=== PATIENT | male | born 1945 | race Caucasian/White ===

== ENCOUNTER 2023-02-28 00:11 | Inpatient (IN) ==
[2023-02-28 01:07] LABS: Albumin Globulin Ratio 1.6 (0.9-2); Albumin Level 4.2 gm/dl (3.4-5.0); BUN Creatinine Ratio 20.3 (10-20); Basophils # (auto) 0.03 K/uL (0-0.2); Basophils % (auto) 0.4 %; Bilirubin,Total 0.5 mg/dl (0.2-1.0); Calcium 9.3 mg/dl (8.6-10.3); Creatinine Clr Calc Pharmacy 54.3 ml/min; Est GFR (African American) 64.3 ml/min; Est GFR (Non-African American) 55.5 ml/min; Globulin 2.7 gm/dl (2.5-4.0); Hematocrit (blood only) 37.1 % (42.0-52.0); Hemoglobin 13.4 g/dl (14.0-18.0); Immature Granulocytes # (auto) 0.03 K/uL (0.01-0.20); Immature Granulocytes % (auto) 0.4 %; Lymphocytes % (auto) 27.1 %; Magnesium 2.1 mg/dl (1.7-2.4); Mean Corpuscular Hemoglobin 32.3 pg (25.0-34.0); Mean Corpuscular Hgb Conc 36.1 g/dL (32.0-36.0); Mean Corpuscular Volume 89.4 fL (80.0-100.0); Mean Platelet Volume 9.2 fL (9.4-12.4); Monocytes % (auto) 8.1 %; Neutrophils # (auto) 4.73 K/uL (1.40-6.50); Platelet Count 201 K/uL (130-400); Potassium 3.3 mmol/L (3.5-5.1); RDW Standard Deviation 42.3 fL (36.4-46.3); Red Blood Count 4.15 M/uL (4.70-6.10); Total Protein 6.9 gm/dl (6.0-8.3); White Blood Count 7.39 K/ul (4.8-10.8)
[2023-02-28] MEDS ORDERED: OPTIRAY 320 500ml IV ONE (01:33)
[2023-02-28 01:48] LABS: Partial Thromboplastin Ratio 1.1; Partial Thromboplastin Time 30.8 Seconds (21.0-31.0); Prothrombin Time 10.9 Seconds (9.0-12.0)
--- NOTE | 2023-02-28 02:02 | CT Scan Report ---
Exam(s): CT HEAD Without Contrast EXAM: CT Head Without Intravenous Contrast CLINICAL HISTORY: Reason for exam: neuro deficit, acute stroke suspected. TECHNIQUE: Axial computed tomography images of the head/brain without intravenous contrast. CTDI is 37.22 mGy and DLP is 624.41 mGy-cm. Automated exposure control was utilized for the study. A dose lowering technique was utilized adhering to the principles of ALARA. COMPARISON: None. FINDINGS: Brain: Mild generalized brain atrophy. Decreased attenuation within the deep periventricular white matter consistent with mild microangiopathic white matter disease. No hemorrhage. Ventricles: Unremarkable. No ventriculomegaly. Bones/joints: Unremarkable. No acute fracture. Soft tissues: Unremarkable. Sinuses: Unremarkable as visualized. No acute sinusitis. Mastoid air cells: Unremarkable as visualized. No mastoid effusion. IMPRESSION: Chronic changes as described. No acute intracranial hemorrhage or space-occupying lesion. Electronically signed by: Nahomi Esparza MD 02/28/23 02:01 AM
--- NOTE | 2023-02-28 02:04 | CT Scan Report ---
Exam(s): CTA NECK With Contrast IV Amt: 110 ml EXAM: CT Angiography Neck With Intravenous Contrast CLINICAL HISTORY: Reason for exam: neuro deficit, acute stroke suspected. TECHNIQUE: Routine carotid CT angiography protocol was performed with intravenous contrast. NASCET criteria using the distal ICAs for comparison were used for evaluation of stenoses. CTDI is 7.52 mGy and DLP is 281.18 mGy-cm. Automated exposure control was utilized for the study. A dose lowering technique was utilized adhering to the principles of ALARA. MIP reconstructed images were created and reviewed. CONTRAST: Patient received 110 ml of IV contrast COMPARISON: None. FINDINGS: VASCULATURE: Right common carotid artery: Unremarkable. No occlusion or significant stenosis. No dissection. Right internal carotid artery: Unremarkable. Extracranial segment is patent with no occlusion or significant stenosis. No dissection. Right external carotid artery: Unremarkable. No occlusion. Right vertebral artery: Unremarkable. No occlusion or significant stenosis. No dissection. Left common carotid artery: Unremarkable. No occlusion or significant stenosis. No dissection. Left internal carotid artery: Unremarkable. Extracranial segment is patent with no occlusion or significant stenosis. No dissection. Left external carotid artery: Unremarkable. No occlusion. Left vertebral artery: Dominant left-sided vertebral artery otherwise normal bilateral vertebral arteries. No occlusion or significant stenosis. No dissection. Aorta: Minimal atherosclerotic disease throughout the great vessels otherwise normal aortic arch with no signs of aneurysm or dissection. NECK: Bones/joints: Unremarkable. Soft tissues: Unremarkable. Lung apices: Clear. CAROTID STENOSIS REFERENCE USING NASCET CRITERIA: % ICA stenosis = (1 - narrowest ICA diameter/diameter of distal cervical ICA) x 100. Mild - <50% stenosis. Moderate - 50-69% stenosis. Severe - 70-94% stenosis. Near occlusion - 95-99% stenosis. Occluded - 100% stenosis. IMPRESSION: Negative CT angiogram of the neck with no evidence of stenosis, occlusion or dissection seen. Electronically signed by: Nahomi Esparza MD 02/28/23 02:03 AM
--- NOTE | 2023-02-28 02:06 | CT Scan Report ---
Exam(s): CTA HEAD With Contrast IV Amt: 110 ml EXAM: CT Angiography Head With Intravenous Contrast CLINICAL HISTORY: Reason for exam: neuro deficit, acute stroke suspected. TECHNIQUE: Axial computed tomographic angiography images of the head with intravenous contrast. CTDI is 29.89 mGy and DLP is 14.95 mGy-cm. Automated exposure control was utilized for the study. A dose lowering technique was utilized adhering to the principles of ALARA. MIP reconstructed images were created and reviewed. CONTRAST: Patient received 110 ml of IV contrast COMPARISON: None. FINDINGS: Right internal carotid artery: Mild calcified atherosclerotic plaque through the cavernous portion of the right internal carotid artery with no stenosis. No aneurysm. Right anterior cerebral artery: Unremarkable. No occlusion or significant stenosis. No aneurysm. Right middle cerebral artery: Unremarkable. No occlusion or significant stenosis. No aneurysm. Right posterior cerebral artery: Unremarkable. No occlusion or significant stenosis. No aneurysm. Right vertebral artery: Unremarkable as visualized. Left internal carotid artery: No acute findings. Intracranial segment is patent with no significant stenosis. No aneurysm. Left anterior cerebral artery: Unremarkable. No occlusion or significant stenosis. No aneurysm. Left middle cerebral artery: Unremarkable. No occlusion or significant stenosis. No aneurysm. Left posterior cerebral artery: Unremarkable. No occlusion or significant stenosis. No aneurysm. Left vertebral artery: Unremarkable as visualized. Basilar artery: Unremarkable. No occlusion or significant stenosis. No aneurysm. IMPRESSION: Negative CT angiogram of the brain with no focal stenosis, occlusion or aneurysm involving the [place] of [place]. Electronically signed by: Nahomi Esparza MD 02/28/23 02:05 AM
[2023-02-28] MEDS ORDERED: SODIUM CHLORIDE 0.9% 1000ML 1,000 ML IV SCH (02:30)
[2023-02-28] MEDS: ASPIRIN CHEW 324 MG PO STA ×2 (02:37→02:39)
--- NOTE | 2023-02-28 02:42 | Emergency Department Note ---
Impression & Plan Stroke-like symptoms, Hypertension, Elevated troponin ED Provider Note INFORMANT: Patient ED PROVIDER(S): Chandra Stallings MD CHIEF COMPLAINT: Hypertension and strokelike symptoms PLAN: Disposition: Admitted Condition: Good Outpatient prescription management: none Referral: None MEDICAL DECISION MAKING: Patient presented because of hypertension strokelike symptoms. His initial blood pressure was elevated significantly but improved from that at home. He underwent a work-up. His ECG did show a bradycardia with lateral T wave inversion. Patient had an unremarkable chest x-ray. CT and CT angiography of the head and neck revealed no acute stroke or dissection. He had an unremarkable CBC and chemistry panel. His troponin was minimally elevated. Aspirin was ordered but then patient's noted she gave him 1 prior to arrival. The patient was given saline hydration. Further management will be necessary in the hospital. Patient and were in agreement and pleased with the treatment. Consultation was placed with Dr. Kuldip Murray, [facility] hospitalist service. Patient was evaluated in the ER and admitted for further management. Patient symptoms started last week. He is not a thrombolytic candidate. Stroke alert not initiated. 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 Triage Nursing notes reviewed and agree them. Vital Signs: reviewed and remarkable for hypertension Prior /Outside records reviewed: none Differential diagnosis: CVA, TIA, hypertensive emergency, infection, dehydration, metabolic abnormality, hypo/hyperglycemia, electrolyte disturbance, anemia, hypoxia, cardiac sources, intracerebral event, toxicologic, neurologic, as well as other pathologies. Diagnostics, as interpreted by me: ECG: Twelve-lead ECG reveals a sinus bradycardia with particularly blocked 56 bpm. There is a lateral T wave inversion present. No ST elevation. Cardiac Monitoring: Cardiac monitoring ordered by me: The patient was placed on continuous cardiac monitoring and observed. It revealed a sinus bradycardic rhythm at 54 bpm. No dysrhythmia. Medical decision rules: none Imaging studies: Chest x-ray. Findings: A chest x-ray was performed and revealed no pneumothorax, effusion, infiltrate, pulmonary edema, free air under the diaphragm, or wide mediastinum. Impression: No acute disease. CT and CT angiography of the head and neck is negative for acute stroke or vessel pathology. I refer you to the EMR for further details. HPI: The patient is a 77year old male who presents to the Emergency Room with complaints of hypertension and strokelike symptoms. This started last week and is persisting. Patient notes he is having occasional difficulty getting words out. He notes that he has had problems with balance and that his left leg feels weak. His blood pressure very high at home At 216/90. The patient also notes the following associated symptoms, feeling foggy in the head. The patient has taken a full dose of aspirin prior to coming in relieving factors. Current pain is rated as 0/10. Pt denies LOC, headache, fevers, chills, diaphoresis, visual changes, neck pain, chest pain, breathing difficulties, nausea, vomiting, abdominal pain, back pain, urinary symptoms, numbness, lymphadenopathy, rash, or other complaints. PAST MEDICAL HISTORY: See Below, stroke PAST SURGICAL HISTORY: See Below, SOCIAL HISTORY: See Below, HOME MEDICATIONS: See Below ALLERGIES: See Below VITALS: See Below PHYSICAL EXAMINATION: GENERAL: Awake, alert, well-appearing, in no distress HENT: Normocephalic, atraumatic. Oropharynx unremarkable. EYES: Normal conjunctiva. Sclera non-icteric. PERRLA. EOMI. NECK: Inspection normal. Non-tender. Supple. No nuchal rigidity. FROM. No masses. RESPIRATORY: Clear to auscultation. No wheezes. No rales. Normal respiratory e ffort. CARDIAC: Normal rate. Normal rhythm. No murmurs. No rubs. Extremities warm and well perfused. Pulses equal. No JVD. GI: Soft, non-distended. No tenderness to palpation. No rebound or guarding. No masses. RECTAL: Deferred. MUSCULOSKELETAL: Atraumatic. Chest examination reveals no tenderness. The back is symmetrical on inspection without obvious abnormality. There is no CVA tenderness to palpation. No joint edema. LOWER EXTREMITIES: Calves are equal size bilaterally and non-tender. No edema. No discoloration. NEURO: Normal sensorium. Mild left leg weakness noted. Normal rapid alter nating movements. Normal [id number]. No other sensory or motor deficits noted. Cranial nerves II through XII intact. Speech normal. SKIN: No rash or jaundice noted. Past Med/Surg History Social History Smoking Status: Never smoker Preferred Language: Latvian Feels Safe at Home: Yes Allergies Allergies Allergy/AdvReac Type Severity Reaction Status Date / Time No Known Allergies Allergy Verified 02/28/23 01:10 Home Meds Home Medications Medication Instructions Recorded Confirmed clotrimazole-betamethasone 1 1 applic topical DAILY PRN Skin 02/28/23 02/28/23 %-0.05 % topical cream Irritation donepezil 5 mg tablet 5 mg PO QPM 02/28/23 02/28/23 tamsulosin 0.4 mg capsule (Flomax) 0.4 mg PO HS 02/28/23 02/28/23 venlafaxine 75 mg capsule,extended 75 mg PO DAILY 02/28/23 02/28/23 release 24 hr Results & Data (ED) Vital Signs Vital Signs - 24 hr 02/28/23 00:13 02/28/23 01:46 02/28/23 02:00 Temperature 36.6 C Temperature Source Temporal Artery Scan Pulse Rate 60 58 L Pulse Rate [Apical] 60 Respiratory Rate 16 18 Respiratory Effort / Characteristics Non-Labored Spontaneous Respiratory Depth Normal Respiratory Pattern Regular Blood Pressure 206/88 H Blood Pressure [Right Arm] 177/86 H Blood Pressure Mean 127 Blood Pressure Mean [Right Arm] 116 Pulse Oximetry 97 96 Oxygen Delivery Method Room Air Room Air Sepsis Recent Fever Within 48 Hours No Sepsis New/Unexplained Change in Mental Status N/A Sepsis Action Taken by Nursing No Action Required 02/28/23 02:28 Temperature Temperature Source Pulse Rate Pulse Rate [Apical] 54 L Respiratory Rate 18 Respiratory Effort / Characteristics Respiratory Depth Respiratory Pattern Blood Pressure Blood Pressure [Right Arm] 173/78 H Blood Pressure Mean Blood Pressure Mean [Right Arm] 109 Pulse Oximetry 94 Oxygen Delivery Method Room Air Sepsis Recent Fever Within 48 Hours Sepsis New/Unexplained Change in Mental Status Sepsis Action Taken by Nursing Laboratory Data 02/28/23 00:27 02/28/23 00:27 Lab Results 02/28/23 02/28/23 02/28/23 Range/Units 00:27 00:27 00:27 WBC 7.39 (4.8-10.8) K/ul RBC 4.15 L (4.70-6.10) M/uL Hgb 13.4 L (14.0-18.0) g/dl Hct 37.1 L (42.0-52.0) % MCV 89.4 (80.0-100.0) fL MCH 32.3 (25.0-34.0) pg MCHC 36.1 H (32.0-36.0) g/dL RDW Std Deviation 42.3 (36.4-46.3) fL RDW Coeff of Aster 13.0 (11.5-14.5) % Plt Count 201 (130-400) K/uL MPV 9.2 L (9.4-12.4) fL Immature Gran % (Auto) 0.4 % Neut % (Auto) 64.0 % Lymph % (Auto) 27.1 % [place] % (Auto) 8.1 % Eos % (Auto) 0.0 % Baso % (Auto) 0.4 % Neut # (Auto) 4.73 (1.40-6.50) K/uL Lymph # (Auto) 2.00 (1.2-3.4) K/uL [place] # (Auto) 0.60 H (0.11-0.59) K/uL Eos # (Auto) 0.00 (0-0.50) K/uL Baso # (Auto) 0.03 (0-0.2) K/uL Immature Gran # (Auto) 0.03 (0.01-0.20) K/uL PT 10.9 (9.0-12.0) Seconds INR 1.0 (0.9-1.1) APTT 30.8 (21.0-31.0) Seconds PTT Ratio 1.1 Sodium 138 (136-145) mmol/L Potassium 3.3 L (3.5-5.1) mmol/L Chloride 104 (98-107) mmol/L Carbon Dioxide 28 (21-32) mmol/L Anion Gap 6 (3-11) BUN 25 H (6-23) mg/dl Creatinine 1.23 (0.6-1.4) mg/dl Est Cr Clr Drug Dosing 54.3 ml/min Est GFR ( Amer) 64.3 ml/min Est GFR (Non-Af Amer) 55.5 ml/min BUN/Creatinine Ratio 20.3 H (10-20) Glucose 162 H (70-99(Fasting)) mg/dl Calcium 9.3 (8.6-10.3) mg/dl Magnesium 2.1 (1.7-2.4) mg/dl Total Bilirubin 0.5 (0.2-1.0) mg/dl AST 20 (13-39) U/L ALT 16 (7-52) U/L Alkaline Phosphatase 64 (34-104) U/L Troponin I High Sens 33.0 H (0-20) pg/ml Total Protein 6.9 (6.0-8.3) gm/dl Albumin 4.2 (3.4-5.0) gm/dl Globulin 2.7 (2.5-4.0) gm/dl Albumin/Globulin Ratio 1.6 (0.9-2) Urine Color Urine Appearance (Clear) Urine pH (4.5-7.5) Ur Specific D Lo (1.000-1.030) Urine Protein (Negative) Urine Glucose (UA) (Negative) Urine Ketones (Negative) Urine Blood (Negative) Urine Nitrite (Negative) Urine Bilirubin (Negative) Urine Urobilinogen (Negative) Ur Leukocyte Esterase (Negative) Lyme Disease IgG Ab (Negative) Lyme Disease IgM Ab (Negative) SARS-CoV-2, RNA, NAAT (NEGATIVE) 02/28/23 02/28/23 02/28/23 Range/Units 00:27 01:45 02:25 WBC (4.8-10.8) K/ul RBC (4.70-6.10) M/uL Hgb (14.0-18.0) g/dl Hct (42.0-52.0) % MCV (80.0-100.0) fL MCH (25.0-34.0) pg MCHC (32.0-36.0) g/dL RDW Std Deviation (36.4-46.3) fL RDW Coeff of Aster (11.5-14.5) % Plt Count (130-400) K/uL MPV (9.4-12.4) fL Immature Gran % (Auto) % Neut % (Auto) % Lymph % (Auto) % [place] % (Auto) % Eos % (Auto) % Baso % (Auto) % Neut # (Auto) (1.40-6.50) K/uL Lymph # (Auto) (1.2-3.4) K/uL [place] # (Auto) (0.11-0.59) K/uL Eos # (Auto) (0-0.50) K/uL Baso # (Auto) (0-0.2) K/uL Immature Gran # (Auto) (0.01-0.20) K/uL PT (9.0-12.0) Seconds INR (0.9-1.1) APTT (21.0-31.0) Seconds PTT Ratio Sodium (136-145) mmol/L Potassium (3.5-5.1) mmol/L Chloride (98-107) mmol/L Carbon Dioxide (21-32) mmol/L Anion Gap (3-11) BUN (6-23) mg/dl Creatinine (0.6-1.4) mg/dl Est Cr Clr Drug Dosing ml/min Est GFR ( Amer) ml/min Est GFR (Non-Af Amer) ml/min BUN/Creatinine Ratio (10-20) Glucose (70-99(Fasting)) mg/dl Calcium (8.6-10.3) mg/dl Magnesium (1.7-2.4) mg/dl Total Bilirubin (0.2-1.0) mg/dl AST (13-39) U/L ALT (7-52) U/L Alkaline Phosphatase (34-104) U/L Troponin I High Sens (0-20) pg/ml Total Protein (6.0-8.3) gm/dl Albumin (3.4-5.0) gm/dl Globulin (2.5-4.0) gm/dl Albumin/Globulin Ratio (0.9-2) Urine Color Yellow Urine Appearance Clear (Clear) Urine pH 6.5 (4.5-7.5) Ur Specific D Lo 1.040 H (1.000-1.030) Urine Protein Negative (Negative) Urine Glucose (UA) Negative (Negative) Urine Ketones Negative (Negative) Urine Blood Negative (Negative) Urine Nitrite Negative (Negative) Urine Bilirubin Negative (Negative) Urine Urobilinogen Negative (Negative) Ur Leukocyte Esterase Negative (Negative) Lyme Disease IgG Ab Negative (Negative) Lyme Disease IgM Ab Negative (Negative) SARS-CoV-2, RNA, NAAT NEGATIVE (NEGATIVE) Administered Medications Discontinued Medications Aspirin (Aspirin Chew 324 Mg) 324 mg PO NOW STA Stop: 02/28/23 02:27 Last Admin: 02/28/23 02:39 Dose: Not Given Documented By: KMF Sodium Chloride (Nss 1000ml) 1,000 mls @ 75 mls/hr IV .[id number] MARIA C Stop: 03/30/23 02:29 Last Admin: 02/28/23 02:41 Dose: 75 mls/hr Documented By: FABIOLA Ioversol (Optiray 320 500ml) 110 ml IV ONCE ONE Stop: 02/28/23 01:34 Last Admin: 02/28/23 01:33 Dose: 110 ml Documented By: [facility] Imaging Data Radiologist's Impression: Head CT 02/28/23 00:39 Exam(s): CT HEAD Without Contrast EXAM: CT Head Without Intravenous Contrast CLINICAL HISTORY: Reason for exam: neuro deficit, acute stroke suspected. TECHNIQUE: Axial computed tomography images of the head/brain without intravenous contrast. CTDI is 37.22 mGy and DLP is 624.41 mGy-cm. Automated exposure control was utilized for the study. A dose lowering technique was utilized adhering to the principles of ALARA. COMPARISON: None. FINDINGS: Brain: Mild generalized brain atrophy. Decreased attenuation within the deep periventricular white matter consistent with mild microangiopathic white matter disease. No hemorrhage. Ventricles: Unremarkable. No ventriculomegaly. Bones/joints: Unremarkable. No acute fracture. Soft tissues: Unremarkable. Sinuses: Unremarkable as visualized. No acute sinusitis. Mastoid air cells: Unremarkable as visualized. No mastoid effusion. IMPRESSION: Chronic changes as described. No acute intracranial hemorrhage or space-occupying lesion. Electronically signed by: Nahomi Esparza MD 02/28/23 02:01 AM Head CTA 02/28/23 00:39 Exam(s): CTA HEAD With Contrast IV Amt: 110 ml EXAM: CT Angiography Head With Intravenous Contrast CLINICAL HISTORY: Reason for exam: neuro deficit, acute stroke suspected. TECHNIQUE: Axial computed tomographic angiography images of the head with intravenous contrast. CTDI is 29.89 mGy and DLP is 14.95 mGy-cm. Automated exposure control was utilized for the study. A dose lowering technique was utilized adhering to the principles of ALARA. MIP reconstructed images were created and reviewed. CONTRAST: Patient received 110 ml of IV contrast COMPARISON: None. FINDINGS: Right internal carotid artery: Mild calcified atherosclerotic plaque through the cavernous portion of the right internal carotid artery with no stenosis. No aneurysm. Right anterior cerebral artery: Unremarkable. No occlusion or significant stenosis. No aneurysm. Right middle cerebral artery: Unremarkable. No occlusion or significant stenosis. No aneurysm. Right posterior cerebral artery: Unremarkable. No occlusion or significant stenosis. No aneurysm. Right vertebral artery: Unremarkable as visualized. Left internal carotid artery: No acute findings. Intracranial segment is patent with no significant stenosis. No aneurysm. Left anterior cerebral artery: Unremarkable. No occlusion or significant stenosis. No aneurysm. Left middle cerebral artery: Unremarkable. No occlusion or significant stenosis. No aneurysm. Left posterior cerebral artery: Unremarkable. No occlusion or significant stenosis. No aneurysm. Left vertebral artery: Unremarkable as visualized. Basilar artery: Unremarkable. No occlusion or significant stenosis. No aneurysm. IMPRESSION: Negative CT angiogram of the brain with no focal stenosis, occlusion or aneurysm involving the [place] of [place]. Electronically signed by: Nahomi Esparza MD 02/28/23 02:05 AM Neck CTA 02/28/23 00:39 Exam(s): CTA NECK With Contrast IV Amt: 110 ml EXAM: CT Angiography Neck With Intravenous Contrast CLINICAL HISTORY: Reason for exam: neuro deficit, acute stroke suspected. TECHNIQUE: Routine carotid CT angiography protocol was performed with intravenous contrast. NASCET criteria using the distal ICAs for comparison were used for evaluation of stenoses. CTDI is 7.52 mGy and DLP is 281.18 mGy-cm. Automated exposure control was utilized for the study. A dose lowering technique was utilized adhering to the principles of ALARA. MIP reconstructed images were created and reviewed. CONTRAST: Patient received 110 ml of IV contrast COMPARISON: None. FINDINGS: VASCULATURE: Right common carotid artery: Unremarkable. No occlusion or significant stenosis. No dissection. Right internal carotid artery: Unremarkable. Extracranial segment is patent with no occlusion or significant stenosis. No dissection. Right external carotid artery: Unremarkable. No occlusion. Right vertebral artery: Unremarkable. No occlusion or significant stenosis. No dissection. Left common carotid artery: Unremarkable. No occlusion or significant stenosis. No dissection. Left internal carotid artery: Unremarkable. Extracranial segment is patent with no occlusion or significant stenosis. No dissection. Left external carotid artery: Unremarkable. No occlusion. Left vertebral artery: Dominant left-sided vertebral artery otherwise normal bilateral vertebral arteries. No occlusion or significant stenosis. No dissection. Aorta: Minimal atherosclerotic disease throughout the great vessels otherwise normal aortic arch with no signs of aneurysm or dissection. NECK: Bones/joints: Unremarkable. Soft tissues: Unremarkable. Lung apices: Clear. CAROTID STENOSIS REFERENCE USING NASCET CRITERIA: % ICA stenosis = (1 - narrowest ICA diameter/diameter of distal cervical ICA) x 100. Mild - <50% stenosis. Moderate - 50-69% stenosis. Severe - 70-94% stenosis. Near occlusion - 95-99% stenosis. Occluded - 100% stenosis. IMPRESSION: Negative CT angiogram of the neck with no evidence of stenosis, occlusion or dissection seen. Electronically signed by: Nahomi Esparza MD 02/28/23 02:03 AM Discharge Plan Visit Data Chief Complaint: Hypertension Stated Complaint: POSSIBLE STROKE,HX OF STROKE,HIGH BP ED Provider: Chandra Stallings Discharge Problem: Stroke-like symptoms, Hypertension, Elevated troponin Forms Stand Alone Forms: My [facility] Prescriptions Prescriptions: No Action venlafaxine 75 mg capsule,extended release 24hr 75 mg PO DAILY donepezil 5 mg tablet 5 mg PO QPM tamsulosin [Flomax] 0.4 mg Capsule 0.4 mg PO HS clotrimazole-betamethasone 1-0.05 % cream 1 applic TOPICAL DAILY PRN (Reason: Skin Irritation) Referrals Referrals: Wilbert Anthony PA-C [Primary Care Provider] -
[2023-02-28] MEDS ORDERED: POTASSIUM CHLORIDE PWD 20 MEQ PACK PO STA (02:51)
[2023-02-28] MEDS ORDERED: NSS + 20MEQ KCL 20 MEQ/1,000 ML BAG IV ONE (02:52)
[2023-02-28 03:06] LABS: Appearance Urine Clear (Clear); Bilirubin Urine Negative (Negative); Blood Urine Negative (Negative); Color Urine Yellow; Glucose Urine UA Negative (Negative); Ketones Urine Negative (Negative); Leukocyte Esterase Urine Negative (Negative); Nitrite Urine Negative (Negative); Protein Urine Negative (Negative); Urobilinogen Urine Negative (Negative); pH Urine 6.5 (4.5-7.5)
[2023-02-28] MEDS ORDERED: lisinopril 5 MG TAB PO ONE (03:46)
--- NOTE | 2023-02-28 03:46 | History & Physical Report ---
Date of Service February 28, 2023 Assessment & Plan (1) Hypertensive crisis: Plan: Hypertensive crisis presenting as TIA symptoms Possible chronic BP elevation given cardiomegaly on CXR Troponin elevation secondary to above prostate cancer status post radiation Multi-infarct dementia/hx cognitive impairment, patient currently mentating well on Aricept Mood disorder, stable on Effexor chronic anemia, hemoglobin at baseline Hyperlipidemia not currently on maintenance medications hyperglycemia rule out DM Hypokalemia past tobacco abuse PCU Low-dose lisinopril for now Careful lowering of BP given TIA concerns neurochecks Aspirin for stroke prevention until stroke definitely ruled out MRI brain, TTE for stroke work-up May need Neurology consult pending MRI results Follow troponin Check lipid panel and hemoglobin A1c Replace potassium DVT prophylaxis. Subcu Full code Patient requesting updates providers. Ms. Saul Malik, contact #[phone]. Text document was generated using [employer] voice recognition software. It may contain grammatical or spelling errors. Kindly contact undersigned for clarification of any documentation item in question. History of Present Illness Chief Complaint: High blood pressure, not feeling well, word finding difficulty Primary Care Provider: Wilbert Anthony History obtained from patient, family, and records. Medical history significant for multi-infarct dementia as per records, hyperlipidemia, BPH, prostate cancer status post radiation, GERD, mood disorder, chronic anemia (baseline hemoglobin of 13), cobalamin deficiency as per records, past tobacco abuse. Patient started by PCP on Aricept years ago for memory impairment/multi-infarct dementia as per records described as having trouble finding the right words. Worsening word finding difficulty the last 2 weeks. Patient feeling foggy and imbalanced. Left leg possibly weak. No headache, no chest pain, no SOB. Patient refused ER evaluation as per . Patient not feeling well yesterday. SBP noted to be 200s. Patient agreed to go to ER for evaluation. Aspirin taken at home prior to departure. Symptoms currently much better. SBP 200s upon arrival at the ER. 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) Allergies Allergy/AdvReac Type Severity Reaction Status Date / Time No Known Allergies Allergy Verified 02/28/23 01:10 Home Medications Medication Instructions Recorded Confirmed Type clotrimazole-betamethasone 1 1 applic topical DAILY PRN Skin 02/28/23 02/28/23 History %-0.05 % topical cream Irritation donepezil 5 mg tablet 5 mg PO QPM 02/28/23 02/28/23 History tamsulosin 0.4 mg capsule (Flomax) 0.4 mg PO HS 02/28/23 02/28/23 History venlafaxine 75 mg capsule,extended 75 mg PO DAILY 02/28/23 02/28/23 History release 24 hr Past Med/Surg History Social History Smoking Status: Never smoker Preferred Language: Indonesian Feels Safe at Home: Yes Review of Systems Review of Systems: As per HPI, all other systems reviewed and negative Physical Exam Physical Exam: GENERAL: Comfortable, obese, pleasant, no respiratory distress SKIN: Normal color, warm HEENT: [place] palpebral conjunctivae, no ptosis, dry buccal mucosa NECK : Supple, short neck, no tenderness CHEST : CTA, no tenderness HEART : Bradycardic, no obvious murmurs ABDOMEN: Some distention, ventral hernia protruding from abdomen trying to sit up, nontender EXTREMITIES : Minimal LE swelling, no LE tenderness, no other conspicuous deformities noted NEUROLOGIC : Coherent, no facial asymmetry, MMTS BUE/BLE 5/5, gait and stance not assessed Results & Data Results & Data Vital Signs (Past 12 Hours) Vital Signs Temp Pulse Pulse Resp BP BP Pulse Ox 02/28/23 02:28 54 L 18 173/78 H 94 02/28/23 02:00 58 L 02/28/23 01:46 60 18 177/86 H 96 02/28/23 00:13 36.6 C 60 16 206/88 H 97 O2 Del Method 02/28/23 02:28 Room Air 02/28/23 02:00 02/28/23 01:46 Room Air 02/28/23 00:13 Room Air Laboratory Results Laboratory Results WBC 7.39 K/ul (4.8-10.8) 02/28/23 00:27 RBC 4.15 M/uL (4.70-6.10) L 02/28/23 00:27 Hgb 13.4 g/dl (14.0-18.0) L 02/28/23 00:27 Hct 37.1 % (42.0-52.0) L 02/28/23 00:27 MCV 89.4 fL (80.0-100.0) 02/28/23 00: MCH 32.3 pg (25.0-34.0) 02/28/23 00: MCHC 36.1 g/dL (32.0-36.0) H 02/28/23 00: RDW Std Deviation 42.3 fL (36.4-46.3) 02/28/23: RDW Coeff of Aster 13.0 % (11.5-14.5) 02/28/23 00: Plt Count 201 K/uL (130-400) 02/28/23: MPV 9.2 fL (9.4-12.4) L 02/28/23 00: Immature Gran % (Auto) 0.4 % 02/28/23 00: Neut % (Auto) 64.0 % 02/28/23 00: Lymph % (Auto) 27.1 % 02/28/23 00: Luce % (Auto) 8.1 % 02/28/23 00: Eos % (Auto) 0.0 % 02/28/23 00: Baso % (Auto) 0.4 % 02/28/23 00: Neut # (Auto) 4.73 K/uL (1.40-6.50) 02/28/23 00: Lymph # (Auto) 2.00 K/uL (1.2-3.4) 02/28/23 00: Luce # (Auto) 0.60 K/uL (0.11-0.59) H 02/28/23 00:27 Eos # (Auto) 0.00 K/uL (0-0.50) 02/28/23 00: Baso # (Auto) 0.03 K/uL (0-0.2) 02/28/23 00: Immature Gran # (Auto) 0.03 K/uL (0.01-0.20) 02/28/23 00: PT 10.9 Seconds (9.0-12.0) 02/28/23 00: INR 1.0 (0.9-1.1) 02/28/23 00: APTT 30.8 Seconds (21.0-31.0) 02/28/23 00: PTT Ratio 1.1 02/28/23: Sodium 138 mmol/L (136-145) 02/28/23: Potassium 3.3 mmol/L (3.5-5.1) L 02/28/23: Chloride 104 mmol/L (98-107) 02/28/23: Carbon Dioxide 28 mmol/L (21-32) 02/28/23: Anion Gap 6 (3-11) 02/28/23: BUN 25 mg/dl (6-23) H 02/28/23: Creatinine 1.23 mg/dl (0.6-1.4) 02/28/23: Est Cr Clr Drug Dosing 54.3 ml/min 02/28/23 00: Est GFR ( Amer) 64.3 ml/min 02/28/23 00: Est GFR (Non-Af Amer) 55.5 ml/min 02/28/23 00: BUN/Creatinine Ratio 20.3 (10-20) H 02/28/23: Glucose 162 mg/dl (70-99(Fasting)) H 02/28/23 00: Calcium 9.3 mg/dl (8.6-10.3) 02/28/23: Magnesium 2.1 mg/dl (1.7-2.4) 02/28/23 00: Total Bilirubin 0.5 mg/dl (0.2-1.0) 02/28/23: AST 20 U/L (13-39) 02/28/23: ALT 16 U/L (7-52) 02/28/23: Alkaline Phosphatase 64 U/L (34-104) 02/28/23 00: Troponin I High Sens 33.0 pg/ml (0-20) H 02/28/23: Total Protein 6.9 gm/dl (6.0-8.3) 02/28/23: Albumin 4.2 gm/dl (3.4-5.0) 02/28/23: Globulin 2.7 gm/dl (2.5-4.0) 02/28/23 00:27 Albumin/Globulin Ratio 1.6 (0.9-2) 02/28/23 00:27 Urine Color Yellow 02/28/23 02:25 Urine Appearance Clear (Clear) 02/28/23 02:25 Urine pH 6.5 (4.5-7.5) 02/28/23 02:25 Ur Specific [place] 1.040 (1.000-1.030) H 02/28/23 02:25 Urine Protein Negative (Negative) 02/28/23 02:25 Urine Glucose (UA) Negative (Negative) 02/28/23 02:25 Urine Ketones Negative (Negative) 02/28/23 02:25 Urine Blood Negative (Negative) 02/28/23 02:25 Urine Nitrite Negative (Negative) 02/28/23 02:25 Urine Bilirubin Negative (Negative) 02/28/23 02:25 Urine Urobilinogen Negative (Negative) 02/28/23 02:25 Ur Leukocyte Esterase Negative (Negative) 02/28/23 02:25 SARS-CoV-2, RNA, NAAT NEGATIVE (NEGATIVE) 02/28/23 01:[address] 02/28/23 00:39 Exam(s): CT HEAD Without Contrast EXAM: CT Head Without Intravenous Contrast CLINICAL HISTORY: Reason for exam: neuro deficit, acute stroke suspected. TECHNIQUE: Axial computed tomography images of the head/brain without intravenous contrast. CTDI is 37.22 mGy and DLP is 624.41 mGy-cm. Automated exposure control was utilized for the study. A dose lowering technique was utilized adhering to the principles of ALARA. COMPARISON: None. FINDINGS: Brain: Mild generalized brain atrophy. Decreased attenuation within the deep periventricular white matter consistent with mild microangiopathic white matter disease. No hemorrhage. Ventricles: Unremarkable. No ventriculomegaly. Bones/joints: Unremarkable. No acute fracture. Soft tissues: Unremarkable. Sinuses: Unremarkable as visualized. No acute sinusitis. Mastoid air cells: Unremarkable as visualized. No mastoid effusion. IMPRESSION: Chronic changes as described. No acute intracranial hemorrhage or space-occupying lesion. Electronically signed by: Nahomi Esparza MD 02/28/23 02:01 AM Head CTA 02/28/23 00:39 Exam(s): CTA HEAD With Contrast IV Amt: 110 ml EXAM: CT Angiography Head With Intravenous Contrast CLINICAL HISTORY: Reason for exam: neuro deficit, acute stroke suspected. TECHNIQUE: Axial computed tomographic angiography images of the head with intravenous contrast. CTDI is 29.89 mGy and DLP is 14.95 mGy-cm. Automated exposure control was utilized for the study. A dose lowering technique was utilized adhering to the principles of ALARA. MIP reconstructed images were created and reviewed. CONTRAST: Patient received 110 ml of IV contrast COMPARISON: None. FINDINGS: Right internal carotid artery: Mild calcified atherosclerotic plaque through the cavernous portion of the right internal carotid artery with no stenosis. No aneurysm. Right anterior cerebral artery: Unremarkable. No occlusion or significant stenosis. No aneurysm. Right middle cerebral artery: Unremarkable. No occlusion or significant stenosis. No aneurysm. Right posterior cerebral artery: Unremarkable. No occlusion or significant stenosis. No aneurysm. Right vertebral artery: Unremarkable as visualized. Left internal carotid artery: No acute findings. Intracranial segment is patent with no significant stenosis. No aneurysm. Left anterior cerebral artery: Unremarkable. No occlusion or significant stenosis. No aneurysm. Left middle cerebral artery: Unremarkable. No occlusion or significant stenosis. No aneurysm. Left posterior cerebral artery: Unremarkable. No occlusion or significant stenosis. No aneurysm. Left vertebral artery: Unremarkable as visualized. Basilar artery: Unremarkable. No occlusion or significant stenosis. No aneurysm. IMPRESSION: Negative CT angiogram of the brain with no focal stenosis, occlusion or aneurysm involving the [place]. Electronically signed by: Nahomi Esparza MD 02/28/23 02:05 AM Neck CTA 02/28/23 00:39 Exam(s): CTA NECK With Contrast IV Amt: 110 ml EXAM: CT Angiography Neck With Intravenous Contrast CLINICAL HISTORY: Reason for exam: neuro deficit, acute stroke suspected. TECHNIQUE: Routine carotid CT angiography protocol was performed with intravenous contrast. NASCET criteria using the distal ICAs for comparison were used for evaluation of stenoses. CTDI is 7.52 mGy and DLP is 281.18 mGy-cm. Automated exposure control was utilized for the study. A dose lowering technique was utilized adhering to the principles of ALARA. MIP reconstructed images were created and reviewed. CONTRAST: Patient received 110 ml of IV contrast COMPARISON: None. FINDINGS: VASCULATURE: Right common carotid artery: Unremarkable. No occlusion or significant stenosis. No dissection. Right internal carotid artery: Unremarkable. Extracranial segment is patent with no occlusion or significant stenosis. No dissection. Right external carotid artery: Unremarkable. No occlusion. Right vertebral artery: Unremarkable. No occlusion or significant stenosis. No dissection. Left common carotid artery: Unremarkable. No occlusion or significant stenosis. No dissection. Left internal carotid artery: Unremarkable. Extracranial segment is patent with no occlusion or significant stenosis. No dissection. Left external carotid artery: Unremarkable. No occlusion. Left vertebral artery: Dominant left-sided vertebral artery otherwise normal bilateral vertebral arteries. No occlusion or significant stenosis. No dissection. Aorta: Minimal atherosclerotic disease throughout the great vessels otherwise normal aortic arch with no signs of aneurysm or dissection. NECK: Bones/joints: Unremarkable. Soft tissues: Unremarkable. Lung apices: Clear. CAROTID STENOSIS REFERENCE USING NASCET CRITERIA: % ICA stenosis = (1 - narrowest ICA diameter/diameter of distal cervical ICA) x 100. Mild - <50% stenosis. Moderate - 50-69% stenosis. Severe - 70-94% stenosis. Near occlusion - 95-99% stenosis. Occluded - 100% stenosis. IMPRESSION: Negative CT angiogram of the neck with no evidence of stenosis, occlusion or dissection seen. Electronically signed by: Nahomi Esparza MD 02/28/23 02:03 AM Diagnostic Findings Chest x-ray as per my interpretation, atelectasis, cardiomegaly EKG as per my interpretation : Rate 55, sinus bradycardia, normal axis, 1 AVB, T wave abnormalities lateral leads
[2023-02-28 03:50] LABS: Lyme Ab IgG w/WB Rflx Negative (Negative); Lyme Ab IgM w/WB Rflx Negative (Negative)
[2023-02-28 05:04] LABS: Thyroid Stimulating Hormone 5.855 uIu/ml (0.300-4.500)
[2023-02-28] MEDS ORDERED: ACETAMINOPHEN 325 MG TAB PO PRN (05:28)
[2023-02-28] MEDS ORDERED: PROMETHAZINE HCL 12.5 MG in SODIUM CHLORIDE 0.9% 50 ML IV PRN (05:28)
[2023-02-28] MEDS ORDERED: PHARMACIST DISCHARGE MED REC CONSULT PRN (05:28)
[2023-02-28 07:22] LABS: T4 Free Thyroxine 0.8 ng/dl (0.61-1.60)
[2023-02-28 08:20] LABS: Chol HDL Ratio 4.1 (0-5)
[2023-02-28 08:28] LABS: Troponin I High Sensitivity 29.7 pg/ml (0-20)
[2023-02-28] MEDS ORDERED: VENLAFAXINE HCL XR 75 MG CAPXR PO SCH (09:00)
[2023-02-28] MEDS ORDERED: ENOXAPARIN INJ 40 MG/0.4 ML SYR SQ SCH (09:00)
[2023-02-28] MEDS ORDERED: ASPIRIN 81 MG ECTAB PO SCH (09:00)
[2023-02-28] MEDS: lisinopril 10 MG TAB PO SCH ×2 (10:00→10:01)
--- NOTE | 2023-02-28 12:49 | XRay Report ---
XR chest 1V portable CLINICAL HISTORY: neuro deficit, acute stroke suspected TECHNIQUE: Single frontal radiograph of the chest was obtained. Comparison: None available at the time of this dictation. FINDINGS: No lines and tubes are seen. Cardiomegaly is noted. The lungs are clear. No evidence of pleural effus ion or pneumothorax. IMPRESSION: No acute chest disease. Cardiomegaly is noted. ACT 112: Negative or not required by law. Electronically signed by: Amandeep Catalan M.D. 02/28/2023 12:47 PM
--- NOTE | 2023-02-28 13:05 | Magnetic Resonance Report ---
MR brain wo con CLINICAL HISTORY: tia TECHNIQUE: Multiplanar and multisequence MR images of the brain were obtained without intravenous con trast. Comparison: Comparison is made to CTA head and neck 02/28/2023 FINDINGS: No abnormal restricted diffusion is identified. Foci of T2 and FLAIR hyperintensity are noted in the paraventricular areas consistent with chronic small vessel ischemic disease. Ex vacuo ventriculomegal y and sulcal enlargement is noted compatible with diffuse volume loss. No mass is seen. There is no m ass effect or midline shift. There is no evidence of acute intraparenchymal hemorrhage. No extra axia l fluid collections are seen. The corpus callosum, pituitary gland, and cerebellar tonsils appear mark ssly unremarkable. Flow voids of the major intracranial arterial vessels are identified. The imaged portions of the para nasal sinuses, mastoid air cells, and orbits are unremarkable. IMPRESSION: No acute abnormalities. ACT 112: Negative or not required by law. Electronically signed by: Amandeep Catalan M.D. 02/28/2023 1:04 PM
[2023-02-28] MEDS ORDERED: STROKE PATIENT DISCHARGE STA (16:12)
--- NOTE | 2023-02-28 16:16 | Discharge Summary ---
Date of Service February 28, 2023 Admission HPI Per Admitting Provider History obtained from patient, family, and records. Medical history significant for multi-infarct dementia as per records, hyperlipidemia, BPH, prostate cancer status post radiation, GERD, mood disorder, chronic anemia (baseline hemoglobin of 13), cobalamin deficiency as per records, past tobacco abuse. Patient started by PCP on Aricept years ago for memory impairment/multi-infarct dementia as per records described as having trouble finding the right words. Worsening word finding difficulty the last 2 weeks. Patient feeling foggy and imbalanced. Left leg possibly weak. No headache, no chest pain, no SOB. Patient refused ER evaluation as per . Patient not feeling well yesterday. SBP noted to be 200s. Patient agreed to go to ER for evaluation. Aspirin taken at home prior to departure. Symptoms currently much better. SBP 200s upon arrival at the ER. 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 Normal insp/exp effort, no accessory muscle use Cardiovascular: RRR, no murmur, no edema Vessels: no JVD or carotid bruit Chest: normal inspection of chest Abdomen: normal bowel sounds, soft, nontender, no hepatosplenomegaly Musculoskeletal: no cyanosis or clubbing, extremities motor strength 5/5 Skin: no rashes, warm and dry normal turgor Neurologic: PERRL, EOMI, accommodation nl, no face palsy, no dysarthria CN's II- XI intact bilaterally and moves all extremities Psychiatric: A+Ox3, euthymic affect Lymphatic: no cervical or axillary lymphadenopathy : deferred Discharge Data Allergies Allergy/AdvReac Type Severity Reaction Status Date / Time No Known Allergies Allergy Verified 02/28/23 01:10 Consultations 02/28/23 02:54 ED Decision to Admit Stat Ordered Studies 02/28/23 00:39 CT angio head w con Stat CT angio neck with con Stat CT head/brain wo con Stat 02/28/23 03:53 MR brain wo con Urgent Hospital Course (1) Hypertensive crisis: Patient presented to the hospital with high blood pressure measured at home. He also complained of word finding difficulty and imbalance. On presentation to the ED, he was hypertensive to SBP of 200s. Other vitals were stable. Patient underwent CT head, CTA head and neck which did not show any acute finding. He was admitted to telemetry floor for stroke work-up. MRI brain did not show any stroke. Echocardiogram showed EF of 50 to 55%; no significant valvular abnormality. He was started on lisinopril 10 mg; blood pressure improved gradually over the course of the hospitalization. At the time of the discharge, patient was alert oriented x3. No focal neurological symptoms. PT OT evaluation was done; recommended home. Patient was discharged home with instruction to take lisinopril 10 mg once a day. He needs to follow-up with primary care doctor to manage high blood pressure long-term. Total Time Total Time Spent Total Time Spent (In Minutes): 45 Total Time Includes: Examination of the Patient, Discharge Planning, Medication Reconciliation, Communication With Other Providers and Other Discharge Plan Discharge Items Patient Disposition: Home - Self-Care Reason For Visit: HTN CRISIS, TIA Discharge Diagnosis: Hypertensive urgency Activity: Resume your previous activity Non-emergency contact: Primary Care Provider Call non-emergency contact if: you have any medication questions and your symptoms worsen Follow-up/Referrals: Wilbert Anthony PA-C [Primary Care Provider] - Diet: Regular Addtl Attending Provider Instructions: You were admitted to the hospital with high blood pressure. You are started on lisinopril 10 mg to be taken once daily. Please start taking it starting tomorrow. Please measure your blood pressure twice a day (morning and evening). Measure your blood pressure while sitting on the chair with both feet on the ground and your arm rested. Please follow-up with your primary care doctor with blood pressure records. During the hospitalization, stroke was ruled out with MRI brain. Echocardiogram was done which showed good heart function(ejection fraction of 50 to 55%). No significant valvular abnormalities were seen. Pending Studies at Discharge: No Stand-Alone Forms: My SmartPill, Smoking Cessation Medications and DC Order Prescriptions: New lisinopril 10 mg Tablet 10 mg PO QAM Qty: 30 0RF Continued venlafaxine 75 mg capsule,extended release 24hr 75 mg PO DAILY donepezil 5 mg tablet 5 mg PO QPM tamsulosin [Flomax] 0.4 mg Capsule 0.4 mg PO HS clotrimazole-betamethasone 1-0.05 % cream 1 applic TOPICAL DAILY PRN (Reason: Skin Irritation) Discharge Orders: Discharge Order (Routine); Ordered 02/28/23 Ordered By: Antonio Woods Admission Data Admit Date/Time: 02/28/23 03:47 Attending Provider: Antonio Woods Admit Provider: Kuldip Murray Primary Care Provider: Wilbert Anthony Other Providers: Kuldip Murray Other Interventions: Discharge Summary Assessment (RN) Last Done: 02/28/23 16:14
[2023-02-28] MEDS ORDERED: DONEPEZIL HCL 5 MG TAB PO SCH (21:00)
[2023-02-28] MEDS ORDERED: TAMSULOSIN HCL 0.4 MG CAP PO SCH (21:00)
--- NOTE | 2023-03-01 06:19 | Electrocardiogram Report ---
Test Reason : Blood Pressure : / mmHG Vent. Rate : 056 BPM Atrial Rate : 056 BPM P-R Int : 280 ms QRS Dur : 086 ms QT Int : 430 ms P-R-T Axes : 035 002 143 degrees QTc Int : 414 ms Sinus bradycardia with 1st degree A-V block Cannot rule out Inferior infarct , age undetermined Abnormal ECG No previous ECGs available Confirmed by Clemente Lazaro ([id number]) on 03/01/2023 6:18:55 AM Referred By: NO PCP Confirmed By:Clemente Lazaro
--- NOTE | 2023-03-01 06:22 | Electrocardiogram Report ---
Test Reason : Blood Pressure : / mmHG Vent. Rate : 058 BPM Atrial Rate : 058 BPM P-R Int : 248 ms QRS Dur : 082 ms QT Int : 450 ms P-R-T Axes : 012 012 131 degrees QTc Int : 441 ms Poor data quality, interpretation may be adversely affected Sinus bradycardia with 1st degree A-V block T wave abnormality, consider lateral ischemia Abnormal ECG When compared with ECG of 28-FEB-2023 00:47, (unconfirmed) No significant change Confirmed by Clemente Lazaro ([id number]) on 03/01/2023 6:22:09 AM Referred By: NO PCP Confirmed By:Clemente Lazaro
[2023-03-01 08:19] LABS: Estimated Average Glucose 114 mg/dl; Hemoglobin A1C 5.6 % (4.5-5.6)
[2023-03-01] MEDS ORDERED: lisinopril 2.5 MG TAB PO SCH (09:00)
== END 2023-02-28 16:31 | disposition home or self-care (01) | DRG 305 ==
LOC: EDBD → ED 00:11 → SUATTDRO 03:47 → INTOOBSV 03:47 → OBSVTOIN 03:47 → 2S 03:47